=== PATIENT | female | born 1985 | race American Indian/Alaskan Native ===

== ENCOUNTER 2016-12-07 11:17 | Emergency (ER) | payer OTHER ==
[2016-12-07 11:22] VITALS: BP 122/75; PULSE 80; TEMP 98.2; BMI 24.3
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
== END 2016-12-07 15:40 | disposition home or self-care (01) ==
LOC: JERFT 11:17 → SUPCPDRO 11:17 → JERFT 15:40
DX: M25.561 Pain in right knee (principal); V43.52XA Car driver injured in collision with other type car in traffic accident, initial encounter; Y92.414 Local residential or business street as the place of occurrence of the external cause; Y93.89 Activity, other specified; Z3A.09 9 weeks gestation of pregnancy
CPT/HCPCS: 36415; 76815-TC; 76817-TC; 84702; 99281-25

== ENCOUNTER 2017-07-04 19:45 | Inpatient (IN) | payer OTHER ==
[2017-07-04] MEDS ORDERED: BUTORPHANOL TARTRATE 1 MG/ML VIAL IVPB ONE (20:38)
[2017-07-04] MEDS ORDERED: PROMETHAZINE HCL 25 MG/1 ML VIAL IVPUSH ONE (20:38)
--- NOTE | 2017-07-04 20:43 | HP ---
Past Medical History - Primary Care Physician PCP:: Ana Bales - Admission Chief Complaint: Active labor History of Present Illness: 32 yo EDC 07/11/17 edc 39 week with c/o of labor no srom no ruq pain. Hypothyroid History Source: Patient - Past Medical History ...: 2 ...Para: 1 Endocrine: Yes: Hypothyroidism - Past Surgical History Past Surgical History: Yes: None Hx Myomectomy: No Hx Transabdominal Cerclage: No - Smoking History Smoking history: Never smoked - Alcohol/Substance Use Hx Alcohol Use: No History of Substance Use: reports: None - Social History Usual Living Arrangement: Yes: With Spouse History of Recent Travel: No Home Medications - Allergies Allergies/Adverse Reactions: Allergies Allergy/AdvReac Type Severity Reaction Status Date / Time No Known Allergies Allergy Verified 07/04/17 20:40 - Home Medications Home Medications: Ambulatory Orders Levothyroxine [Synthroid -] 50 mcg PO DAILY 07/04/17 Pnv95/Ferrous Fumarate/FA [ Vitamin Tablet] 1 each PO DAILY 07/04/17 Review of Systems - Review of Systems Constitutional: reports: No Symptoms Eyes: reports: No Symptoms HENT: reports: No Symptoms Neck: reports: No Symptoms Cardiovascular: reports: No Symptoms Respiratory: reports: No Symptoms Gastrointestinal: reports: Abdominal Pain Genitourinary: reports: No Symptoms Breasts: reports: No Symptoms Reported Musculoskeletal: reports: No Symptoms Integumentary: reports: No Symptoms Neurological: reports: No Symptoms Endocrine: reports: No Symptoms Hematology/Lymphatic: reports: No Symptoms Psychiatric: reports: No Symptoms Physical Exam - Maternity Constitutional: Yes: Well Nourished, No Distress Neck: Yes: WNL Cardiovascular: Yes: WNL Lungs: Clear to auscultation Breast(s): Yes: WNL - Abdominal Exam/OB Fundal Height: 39 Number of Fetuses: Single Contractions: Yes Regularity: Regular Intensity: Mild/Mod Monitor Mode: External Category: I Decelerations: None - Vaginal Exam/OB Dilatation (cm): 2-3 cm Effacement (%): 100 Amniotic Membrane Status: Intact Presentation: Vertex/Position - Physical Exam Musculoskeletal: Yes: WNL Extremities: Yes: WNL Edema: No Psychiatric: Yes: WNL, Alert, Oriented Problem List - Problems (1) Labor established Code(s): RFL0170 - Assessment/Plan IUP at week prodromal labor Plan admit stadol or epidural
[2017-07-04] MEDS ORDERED: DEXTROSE 5%-LACTATED RINGERS 1,000 ML IV SCH (20:45)
[2017-07-04 21:56] VITALS: BMI 34.2
[2017-07-04 22:08] LABS: BASOPHIL 0.3 % (0-2.0); EOSINOPHIL 0.2 % (0-4.5); MCH 29.4 pg (25.7-33.7); MEAN CELL VOLUME 89.2 fl (80-96); MEAN PLT VOLUME 10.1 fl (7.5-11.1); NEUTROPHILS 84.6 % (42.8-82.8); PLATELET COUNT 225 K/MM3 (134-434); RDW 14.8 % (11.6-15.6); WHITE BLOOD COUNT 12.5 K/mm3 (4.0-10.0)
[2017-07-04 22:19] LABS: INR 0.88 (0.82-1.09); PROTHROMBIN TIME (PATIENT) 9.9 SEC (9.98-11.88)
[2017-07-04 22:22] LABS: ACTIVATED PTT 29.6 SECONDS (26.9-34.4)
[2017-07-04 22:27] LABS: ANION GAP 10 (8-16); CALCIUM 8.2 mg/dL (8.5-10.1); CO2 22 mmol/L (21-32); CREATININE 0.6 mg/dL (0.55-1.02); GLUCOSE,RANDOM 78 mg/dL (74-106)
[2017-07-04] MEDS ORDERED: AMPICILLIN - 2 GM in SODIUM CHLORIDE 100 ML IVPB ONE (23:00)
[2017-07-04] MEDS ORDERED: ELECTROLYTE-148 SOLN 1,000 ML IV SCH (23:00)
[2017-07-04] MEDS ORDERED: TUBERCULIN PPD 5 TU/0.1ML SYRINGE (IN PATIENT USE ONLY) ID ONE (23:45)
[2017-07-05] MEDS: FENTANYL/BUPIVACAINE/NS/PF - PCEA - 50 ML DISP.SYRIN EP SCH (00:30)
[2017-07-05] MEDS: AMPICILLIN - 1 GM in SODIUM CHLORIDE 100 ML IVPB SCH ×2 (02:15→18:02)
[2017-07-05] MEDS ORDERED: METHYLERGONOVINE MALEATE 0.2 MG/1 ML AMP IM PRN (03:19)
[2017-07-05] MEDS ORDERED: BENZOCAINE 20% 57 GM BOTTLE TP PRN (03:19)
[2017-07-05] MEDS ORDERED: WITCH HAZEL 50% (TUCKS) 40 PAD/JAR PAD TP PRN (03:19)
[2017-07-05] MEDS ORDERED: BISACODYL 10 MG SUPP.RECT PR PRN (03:19)
[2017-07-05] MEDS ORDERED: ACETAMINOPHEN 325 MG TABLET (FP) PO PRN (03:19)
[2017-07-05] MEDS ORDERED: BENZOCAINE 28 GM HEMORRHOIDAL OINTMENT PR PRN (03:19)
[2017-07-05] MEDS ORDERED: IBUPROFEN 600 MG TABLET (FP) PO PRN (03:19)
--- NOTE | 2017-07-05 03:22 | PN ---
Ante-Partal Exam - Subjective Subjective: Pt feeling urge to push Vital Signs: Vital Signs Temperature 98.2 F 07/04/17 20:50 Pulse Rate 80 07/05/17 02:45 Respiratory Rate 18 07/05/17 02:45 Blood Pressure 116/72 07/05/17 02:45 O2 Sat by Pulse Oximetry (%) 98 07/05/17 02:45 Headache: No Visual changes: No Right upper quadrant pain: No - Contractions Regularity: Regular Intensity: Mod/Strong Monitor Mode: External - Exam during Labor Variability: Moderate Category: I Monitor Accelerations: Present Monitor Decelerations: Early Exam: Vaginal Dilatation (cm): 10 Amniotic Membrane Status: Ruptured Amniotic Fluid: Meconium Stained Meconium Staining: Light Presentation: Vertex Station: +1 - Intrapartum Hemorrhage Risk Risk Score: 0 Risk Level: Low Risk - Assessment/Plan Assessment/Plan: Active labor 2nd stage Plan Anticipate vaginal delivery
--- NOTE | 2017-07-05 03:26 | PN ---
Delivery - Delivery Vaginal Delivery: No Problems Type of Anesthesia: Epidural Episiotomy/Laceration: 1st degree EBL (cc): 250 (shoulders delivered wihtout comp) Delivery, Single - Stages of Labor Placenta: Yes: Spontaneous - Condition of Infant Gender: Female Position: OA - Feeding Plan Initial Plan: Exclusive throughout hospitalization
[2017-07-05] MEDS ORDERED: OXYTOCIN 20 UNITS in 0.9% NS 1,000 ML IV SCH (03:30)
[2017-07-05 03:34] LABS: VENOUS BLOOD GAS HCO3 22.7 meq/L (19-25); VENOUS PH 7.33 (7.32-7.42)
[2017-07-05] MEDS ORDERED: IBUPROFEN 600 MG TABLET (FP) PO ONE (06:00)
[2017-07-05] MEDS ORDERED: ACETAMINOPHEN 325 MG TABLET (FP) PO ONE (06:00)
[2017-07-05] MEDS: ACETAMINOPHEN 650 MG/20.3 ML ORAL SOLUTION (CUPS) PO PRN ×2 (09:38→18:06)
[2017-07-05] MEDS: IBUPROFEN 100 MG/5 ML UNIT DOSE CUPS PO PRN ×2 (09:39→18:06)
[2017-07-05] MEDS: PRENATAL VITAMINS W/ FOLIC ACID TABLET (FP) PO SCH (09:42)
--- NOTE | 2017-07-05 11:55 | PN ---
Post Note - Post Date of Delivery: 07/05/17 Post Day: 0 Vital Signs: Vital Signs - 24 hr 07/04/17 07/04/17 07/05/17 20:50 23:00 00:30 Temperature 98.2 F Pulse Rate 56 L 92 H 82 Respiratory 18 20 18 Rate Blood Pressure 137/91 123/75 108/69 O2 Sat by Pulse 99 Oximetry (%) 07/05/17 07/05/17 07/05/17 00:35 00:40 00:45 Temperature Pulse Rate 72 75 70 Respiratory 18 18 18 Rate Blood Pressure 104/68 88/58 105/67 O2 Sat by Pulse 99 98 98 Oximetry (%) 07/05/17 07/05/17 07/05/17 01:00 01:15 01:30 Temperature Pulse Rate 79 74 74 Respiratory 18 18 18 Rate Blood Pressure 115/72 113/70 117/72 O2 Sat by Pulse 98 98 98 Oximetry (%) 07/05/17 07/05/17 07/05/17 01:45 02:00 02:15 Temperature Pulse Rate 73 78 76 Respiratory 18 18 18 Rate Blood Pressure 117/72 119/79 123/78 O2 Sat by Pulse 98 98 99 Oximetry (%) 07/05/17 07/05/17 07/05/17 02:30 02:45 03:15 Temperature Pulse Rate 81 80 97 H Respiratory 18 18 18 Rate Blood Pressure 114/71 116/72 122/60 O2 Sat by Pulse 98 98 95 Oximetry (%) 07/05/17 07/05/17 07/05/17 03:30 03:45 03:56 Temperature 97.9 F Pulse Rate 97 H 84 78 Respiratory 18 18 18 Rate Blood Pressure 106/77 117/72 112/63 O2 Sat by Pulse 100 100 100 Oximetry (%) 07/05/17 08:26 Temperature 98 F Pulse Rate 70 Respiratory 20 Rate Blood Pressure 115/64 O2 Sat by Pulse Oximetry (%) Labs: Laboratory Results - last 24 hr 07/04/17 07/04/17 07/04/17 21:45 21:45 21:45 WBC 12.5 H RBC 4.45 D Hgb 13.1 D Hct 39.7 D MCV 89.2 MCH 29.4 MCHC 33.0 RDW 14.8 Plt Count 225 MPV 10.1 Neutrophils % 84.6 H Lymphocytes % 10.3 D Monocytes % 4.6 Eosinophils % 0.2 D Basophils % 0.3 PT with INR 9.90 L INR 0.88 PTT (Actin FS) 29.6 PT Mixing Study Anticoagulation Therapy Puncture Site Patient Temperature ABG pH ABG pCO2 at Pt Temp ABG pO2 at Pt Temp ABG HCO3 ABG O2 Sat (Measured) ABG O2 Content ABG Base Excess Alan Test VBG pH POC VBG pCO2 POC VBG pO2 Mixed VBG HCO3 O2 Delivery Device Oxygen Flow Rate Vent Mode Vent Rate Mechanical Rate PEEP Pressure Support Vent Sodium 136 Potassium 4.2 Chloride 104 Carbon Dioxide 22 Anion Gap 10 BUN 9 D Creatinine 0.6 Random Glucose 78 Calcium 8.2 L Blood Type Antibody Screen 07/04/17 07/05/17 07/05/17 21:45 03:06 03:19 WBC RBC Hgb Hct MCV MCH MCHC RDW Plt Count MPV Neutrophils % Lymphocytes % Monocytes % Eosinophils % Basophils % PT with INR INR PTT (Actin FS) PT Mixing Study Cancelled Anticoagulation Therapy Cancelled Puncture Site Cancelled Patient Temperature Cancelled ABG pH Cancelled ABG pCO2 at Pt Temp Cancelled ABG pO2 at Pt Temp Cancelled ABG HCO3 Cancelled ABG O2 Sat (Measured) Cancelled ABG O2 Content Cancelled ABG Base Excess Cancelled Alan Test Cancelled VBG pH 7.33 POC VBG pCO2 44.5 POC VBG pO2 36.3 Mixed VBG HCO3 22.7 O2 Delivery Device Cancelled Oxygen Flow Rate Cancelled Vent Mode Cancelled Vent Rate Cancelled Mechanical Rate Cancelled PEEP Cancelled Pressure Support Vent Cancelled Sodium Potassium Chloride Carbon Dioxide Anion Gap BUN Creatinine Random Glucose Calcium Blood Type B POSITIVE Antibody Screen Negative - Subjective Subjective: No Complaints - Objective Afebrile: Yes Breast: Not engorged Abdomen: Soft, Non-tender Uterus: Fundus firm Vagina: Scant lochia Extremities: Non-tender - Assessment/Plan (1) Labor established Assessment: S/P Normal Plan: Routine Care
--- NOTE | 2017-07-05 11:57 | DS ---
Physical Exam-SUPERVISING CHEF Vital Signs: Vital Signs Temperature 98 F 07/05/17 08:26 Pulse Rate 70 07/05/17 08:26 Respiratory Rate 20 07/05/17 08:26 Blood Pressure 115/64 07/05/17 08:26 O2 Sat by Pulse Oximetry (%) 100 07/05/17 03:56 Constitutional: Yes: Well Nourished, No Distress Respiratory: Yes: WNL Gastrointestinal: Yes: WNL ....Post : Yes: Uterus firm, Uterus non-tender Edema: No Labs: CBC, BMP 07/04/17 21:45 07/04/17 21:45 Delivery - Delivery Vaginal Delivery: No Problems Type of Anesthesia: Epidural Episiotomy/Laceration: Perineal Extension/lac, 1st degree EBL (cc): 250 Delivery, Single - Stages of Labor Date 1st Stage Initiatied: 07/04/17 Time 1st Stage Initiated: 15:00 Date 2nd Stage Initiated: 07/05/17 Time 2nd Stage Initiated: 02:30 Date of Delivery: 07/05/17 Time of Delivery: 03:04 Time Placenta Delivered: 03:10 Placenta: Yes: Spontaneous - Condition of Infant 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 call for appointment. Referrals: Ana Bales MD [Staff Physician] - Disposition: HOME - Home Medications Comprehensive Discharge Medication List: Ambulatory Orders Levothyroxine [Synthroid -] 50 mcg PO DAILY 07/04/17 Pnv95/Ferrous Fumarate/FA [ Vitamin Tablet] 1 each PO DAILY 07/04/17 Ibuprofen [Motrin -] 600 mg PO QID PRN #28 tablet 07/05/17
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
[2017-07-06] MEDS: ACETAMINOPHEN 650 MG/20.3 ML ORAL SOLUTION (CUPS) PO PRN ×3 (06:33→19:59)
[2017-07-06] MEDS: IBUPROFEN 100 MG/5 ML UNIT DOSE CUPS PO PRN ×3 (06:33→19:54)
[2017-07-06 08:42] LABS: BASOPHIL 0.6 % (0-2.0); EOSINOPHIL 1.6 % (0-4.5); MCH 29.7 pg (25.7-33.7); MCHC 32.9 g/dl (32.0-36.0); MEAN CELL VOLUME 90.5 fl (80-96); MEAN PLT VOLUME 9.3 fl (7.5-11.1); NEUTROPHILS 74.9 % (42.8-82.8); PLATELET COUNT 201 K/MM3 (134-434); RDW 14.9 % (11.6-15.6); WHITE BLOOD COUNT 9.4 K/mm3 (4.0-10.0)
[2017-07-06] MEDS: AMPICILLIN - 1 GM in SODIUM CHLORIDE 100 ML IVPB SCH (09:01)
[2017-07-06] MEDS: FENTANYL/BUPIVACAINE/NS/PF - PCEA - 50 ML DISP.SYRIN EP SCH (09:02)
[2017-07-06] MEDS ORDERED: DIPHTH,PERTUSS(ACELL),TET 0.5 ML DISP.SYRIN IM ONE (10:00)
[2017-07-06] MEDS ORDERED: FLU VACC QS2017-18 36MOS UP/PF 60 MCG/0.5 ML SYRINGE IM ONE (10:00)
[2017-07-06] MEDS: PRENATAL VITAMINS W/ FOLIC ACID TABLET (FP) PO SCH ×2 (10:40→10:52)
[2017-07-07] MEDS: IBUPROFEN 100 MG/5 ML UNIT DOSE CUPS PO PRN ×3 (01:08→12:57)
[2017-07-07] MEDS: ACETAMINOPHEN 650 MG/20.3 ML ORAL SOLUTION (CUPS) PO PRN ×3 (01:10→12:57)
[2017-07-07 08:39] VITALS: BP 122/76; PULSE 70; TEMP 97.5
[2017-07-07] MEDS: PRENATAL VITAMINS W/ FOLIC ACID TABLET (FP) PO SCH (09:04)
== END 2017-07-07 13:30 | disposition home or self-care (01) | DRG 775 ==
LOC: JDEL 19:45 → JLDR 20:50 → J3W 07-05 04:00
PROVIDERS: ADMIT Obstetrics & Gynecology; ATTEND Obstetrics & Gynecology
PROC: 10E0XZZ Delivery of Products of Conception, External Approach (ICD-10-PCS; principal; 2017-07-05)
PROC: 0W8NXZZ Division of Female Perineum, External Approach (ICD-10-PCS; 2017-07-05)
PROC: 0HQ9XZZ Repair Perineum Skin, External Approach (ICD-10-PCS; 2017-07-05)
DX: O70.0 First degree perineal laceration during delivery (principal); E03.9 Hypothyroidism, unspecified; O99.283 Endocrine, nutritional and metabolic diseases complicating pregnancy, third trimester; Z3A.39 39 weeks gestation of pregnancy; Z37.0 Single live birth
CPT/HCPCS: 36415; 59409; 80048; 82803; 85025; 85610; 85730; 86593; 86850; 86900; 86901; 90686; 90715; G0008

== ENCOUNTER 2021-01-02 10:35 | Inpatient (IN) | payer OTHER ==
[2021-01-02] MEDS: LACTATED RINGERS SOLUTION 1,000 ML IV SCH (11:00)
[2021-01-02] MEDS ORDERED: AMPICILLIN SODIUM 2 GM VIAL ONE (11:29)
[2021-01-02] MEDS ORDERED: AMPICILLIN - 2 GM in SODIUM CHLORIDE 100 ML IVPB ONE (11:30)
[2021-01-02 12:14] LABS: BASO % 0.4 % (0-2.0); EOS % 1.1 % (0-4.5); HEMATOCRIT 35.4 % (32.4-45.2); LYMPH % 18.2 % (8-40); MCH 29.3 pg (25.7-33.7); MCHC 33.9 g/dl (32.0-36.0); MEAN CELL VOLUME 86.3 fl (80-96); MEAN PLT VOLUME 9.5 fl (7.5-11.1); MONO % 5.4 % (3.8-10.2); NEUT % 74.9 % (42.8-82.8); PLATELET COUNT 216 K/MM3 (134-434); RDW 15.3 % (11.6-15.6); WHITE BLOOD COUNT 8.1 K/mm3 (4.0-10.0)
[2021-01-02 12:15] LABS: INR 0.83 (0.83-1.09); PROTHROMBIN TIME (PATIENT) 10.3 SEC (9.7-13.0)
[2021-01-02 12:18] LABS: ACTIVATED PTT 26.1 SECONDS (25.2-36.5)
[2021-01-02 12:22] VITALS: BMI 31.2
[2021-01-02 12:29] LABS: CALCIUM 8.2 mg/dL (8.5-10.1)
[2021-01-02 12:31] LABS: BLOOD UREA NITROGEN 7.5 mg/dL (7-18)
[2021-01-02 12:33] LABS: CREATININE 0.6 mg/dL (0.55-1.3)
[2021-01-02] MEDS ORDERED: BUTORPHANOL TARTRATE 1 MG/ML VIAL IVPB PRN (12:43)
[2021-01-02] MEDS ORDERED: AMPICILLIN SODIUM 1 GM VIAL ONE ×2 (15:16→19:43)
[2021-01-02] MEDS: AMPICILLIN - 1 GM in SODIUM CHLORIDE 100 ML IVPB SCH ×3 (15:31→23:40)
[2021-01-02] MEDS: ELECTROLYTE-148 SOLN 1,000 ML IV SCH (21:00)
[2021-01-02] MEDS ORDERED: OXYTOCIN 30 UNITS in 0.9% NS 30 UNIT/500 ML INFUS.BAG IVPB ONE (22:56)
[2021-01-02] MEDS: OXYTOCIN 30 UNITS in 0.9% NS 30 UNIT/500 ML INFUS.BAG IVPB SCH (23:15)
[2021-01-02] MEDS ORDERED: PCA PUMP NR ONE (23:21)
[2021-01-02] MEDS ORDERED: FENTANYL/BUPIVACAINE/NS/PF - PCEA - 50 ML DISP.SYRIN EP ONE (23:21)
[2021-01-02] MEDS ORDERED: NALOXONE HCL 0.4 MG/ML VIAL IVPUSH PRN (23:21)
[2021-01-02] MEDS ORDERED: BUPIVACAINE HCL/PF 0.25% (2.5MG/ML) 10 ML VIAL ONE (23:24)
[2021-01-02] MEDS: FENTANYL/BUPIVACAINE/NS/PF - PCEA - 50 ML DISP.SYRIN EP SCH (23:30)
[2021-01-03] MEDS ORDERED: AMPICILLIN SODIUM 1 GM VIAL ONE (00:23)
[2021-01-03] MEDS ORDERED: OXYTOCIN 20 UNITS in 0.9% NS 20 UNIT/1,000 ML INFUS.BAG IV ONE ×2 (00:23→02:17)
[2021-01-03] MEDS ORDERED: BENZOCAINE 20% 57 GM BOTTLE TP PRN (01:22)
[2021-01-03] MEDS ORDERED: BENZOCAINE 28 GM HEMORRHOIDAL OINTMENT RC PRN (01:22)
[2021-01-03] MEDS ORDERED: METHYLERGONOVINE MALEATE 0.2 MG/1 ML AMP IM PRN (01:22)
[2021-01-03] MEDS ORDERED: BISACODYL 10 MG SUPP.RECT PR PRN (01:22)
[2021-01-03] MEDS ORDERED: WITCH HAZEL 50% (TUCKS) 40 PAD/JAR PAD TP PRN (01:22)
[2021-01-03] MEDS: OXYTOCIN 20 UNITS in 0.9% NS 20 UNIT/1,000 ML INFUS.BAG IV SCH ×2 (01:30→01:50)
[2021-01-03 02:14] LABS: CORD BASE EXCESS -2.6 mmol/L (0-2); CORD HCO3 23.5 mmHg (20-29); CORD PCO2 45.5 mmHg (30-78); CORD pH 7.331 (7.14-7.44)
[2021-01-03 02:17] LABS: CORD BASE EXCESS -5.1 mmol/L (0-2); CORD HCO3 22.3 mmHg (20-29); CORD PCO2 50.3 mmHg (30-78); CORD pH 7.265 (7.14-7.44)
[2021-01-03] MEDS: AMPICILLIN - 1 GM in SODIUM CHLORIDE 100 ML IVPB SCH (03:39)
[2021-01-03] MEDS: IBUPROFEN 600 MG TABLET (FP) PO PRN ×3 (09:54→21:51)
[2021-01-03] MEDS: ACETAMINOPHEN 325 MG TABLET (FP) PO PRN ×3 (09:54→21:51)
[2021-01-04 08:01] LABS: BASO % 0.5 % (0-2.0); EOS % 1.2 % (0-4.5); HEMATOCRIT 33.7 % (32.4-45.2); HEMOGLOBIN 11.4 GM/dL (10.7-15.3); LYMPH % 19.3 % (8-40); MCH 29.3 pg (25.7-33.7); MCHC 33.7 g/dl (32.0-36.0); MEAN CELL VOLUME 87.1 fl (80-96); MEAN PLT VOLUME 9.4 fl (7.5-11.1); MONO % 5.8 % (3.8-10.2); NEUT % 73.2 % (42.8-82.8); PLATELET COUNT 191 K/MM3 (134-434); RBC 3.87 M/mm3 (3.60-5.2); RDW 14.9 % (11.6-15.6); WHITE BLOOD COUNT 10.5 K/mm3 (4.0-10.0)
[2021-01-04] MEDS: IBUPROFEN 600 MG TABLET (FP) PO PRN (08:32)
[2021-01-04] MEDS: ACETAMINOPHEN 325 MG TABLET (FP) PO PRN (08:33)
[2021-01-04] MEDS ORDERED: IBUPROFEN *ORAL SUSPENSION* 100 MG/5 ML PO PRN (10:39)
[2021-01-04] MEDS: ACETAMINOPHEN 650 MG/20.3 ML ORAL SOLUTION (CUPS) PO PRN ×2 (17:19→21:40)
[2021-01-04] MEDS: IBUPROFEN 100 MG/5 ML UNIT DOSE CUPS PO PRN ×2 (17:20→21:42)
[2021-01-04] MEDS: LACTATED RINGERS SOLUTION 1,000 ML IV SCH ×2 (19:06→19:07)
[2021-01-04] MEDS: OXYTOCIN 30 UNITS in 0.9% NS 30 UNIT/500 ML INFUS.BAG IVPB SCH (19:07)
[2021-01-04] MEDS: OXYTOCIN 20 UNITS in 0.9% NS 20 UNIT/1,000 ML INFUS.BAG IV SCH (19:07)
[2021-01-04] MEDS: FENTANYL/BUPIVACAINE/NS/PF - PCEA - 50 ML DISP.SYRIN EP SCH (19:07)
[2021-01-04] MEDS: ELECTROLYTE-148 SOLN 1,000 ML IV SCH (19:07)
[2021-01-05] MEDS: ACETAMINOPHEN 650 MG/20.3 ML ORAL SOLUTION (CUPS) PO PRN (09:34)
[2021-01-05] MEDS: IBUPROFEN 100 MG/5 ML UNIT DOSE CUPS PO PRN (09:35)
[2021-01-05 11:13] VITALS: BP 116/77; PULSE 89; TEMP 98.1
[2021-01-05 11:50] LABS: POC NITRAZINE POS
== END 2021-01-05 13:30 | disposition home or self-care (01) | DRG 807 ==
LOC: JDEL 10:35 → JLDR 10:36 → J3W 01-03 03:00
PROVIDERS: ADMIT Obstetrics & Gynecology; ATTEND Obstetrics & Gynecology
PROC: 10E0XZZ Delivery of Products of Conception, External Approach (ICD-10-PCS; principal; 2021-01-03)
DX: O42.02 Full-term premature rupture of membranes, onset of labor within 24 hours of rupture (principal); Z37.0 Single live birth; O99.824 Streptococcus B carrier state complicating childbirth; O70.0 First degree perineal laceration during delivery; O69.81X0 Labor and delivery complicated by cord around neck, without compression, not applicable or unspecified; O99.284 Endocrine, nutritional and metabolic diseases complicating childbirth; E03.9 Hypothyroidism, unspecified; Z3A.39 39 weeks gestation of pregnancy
CPT/HCPCS: 36415; 36600; 59409; 80048; 82803; 83986-QW; 85025; 85610; 85730; 86780; 86850; 86900; 86901; C9803; U0003; U0005